=== PATIENT | female | born 1990 | race Caucasian/White ===

== ENCOUNTER → 2016-12-28 | Outpatient (CLI) | payer BC | LOC: MW.CHOBGYN 16:41 | PROVIDERS: ATTEND Nurse Practitioner Women's Health | DX: Z34.90 Encounter for supervision of normal pregnancy, unspecified, unspecified trimester (principal) | CPT/HCPCS: 81001; 87480; 87510; 87660 ==

== ENCOUNTER 2017-01-08 16:09 | Inpatient (IN) | payer BC ==
[2017-01-08] MEDS ORDERED: Nalbuphine 10 MG/1 ML Vial IVPUSH PRN (17:07)
[2017-01-08] MEDS ORDERED: Water For Irrigation,Sterile 1,000 ML Container IRR PRN (17:07)
[2017-01-08] MEDS ORDERED: Lidocaine 1% 50 ML MDV INJECT PRN (17:07)
[2017-01-08] MEDS ORDERED: Carboprost Tromethamine 250 MCG/1 ML Amp IM PRN (17:07)
[2017-01-08] MEDS ORDERED: Sodium Chloride 0.9% 2.5 ML Syringe FLUSH PRN (17:07)
[2017-01-08] MEDS ORDERED: Sodium Chloride 0.9% 10 ML Syringe FLUSH PRN (17:07)
[2017-01-08] MEDS ORDERED: Butorphanol 1 MG/ML SDV IVPUSH PRN (17:07)
[2017-01-08] MEDS ORDERED: Misoprostol 200 MCG Tab PO PRN (17:07)
[2017-01-08] MEDS ORDERED: Methylergonovine 0.2 MG/1 ML Amp IM PRN (17:07)
[2017-01-08] MEDS ORDERED: Oxytocin/Lactated Ringers 30 UNIT/500 ML BAG IV SCH (17:15)
--- NOTE | 2017-01-08 18:11 | PCM.LDHP ---
L&D History of Present Illness - General Date of Service: 01/08/17 Admit Problem/Dx: Patient Status Order with Admit Dx/Problem 01/08/17 17:07 Patient Status [ADT] Routine Patient Status: Refer to Observation Admission Diagnosis/Problem: - planned Reason for Admit: Labor Nurse Unit Type: Labor and Delivery Admitting Physician: Chilo Zaragoza Attending Physician: Celeste Dominguez Special Instructions: Medicare 96 Hour Certification Statement: This Patient is Admitted for Inpatient Services and is Medically Appropriate and Meets Medical Necessity for Inpatient Admission. I Reasonably Expect the Patient Will Require Inpatient Services That Span a Period of Time Over 2 Midnights. My Rationale for Medically Necessary Inpatient Care Will Be Found in the Admission History & Physical and Progress Notes. I Reasonably Expect the Patient to be Discharged or Transferred Within 96 Hours After Admission to This [facility]. Admission Diagnosis/Problem Admission Diagnosis/Problem - planned 01/08/17 18:06 26 yo EDC 01/14/2017 39+1wk, SVE 680/-2, active labor. Source of Information: Patient History Limitations: Reports: No limitations - History of Present Illness Improves with: Reports: None Worsens with: Reports: None Associated Symptoms: Reports: N - Related Data Allergies/Adverse Reactions: Allergies Allergy/AdvReac Type Severity Reaction Status Date / Time No Known Allergies Allergy Verified 01/28/14 16:04 Social & Family History - Tobacco Use Used Tobacco, but Quit: No Month Tobacco Last Used: This week. Second Hand Smoke Exposure: No - Alcohol Use Days Per Week of Alcohol Use: 0 - Recreational Drug Use Recreational Drug Use: No H&P Review of Systems - Review of Systems: Review Of Systems: See Below General: Reports: no symptoms HEENT: Reports: no symptoms Pulmonary: Reports: No Symptoms Cardiovascular: Reports: no symptoms Gastrointestinal: Reports: No symptoms Genitourinary: Reports: no symptoms Musculoskeletal: Reports: no symptoms Skin: Reports: no symptoms Psychiatric: Reports: no symptoms Neurological: Reports: No Symptoms Hematologic/Lymphatic: Reports: no symptoms Immunologic: Reports: no symptoms L&D Exam - Exam Exam: See Below - Vital Signs Weight: 122.47 kg - Thomas Score Thomas Score Cervix Position: Midposition Thomas Score Consistency: Soft Thomas Score Effacement: >80% Thomas Score Dilation: > 5 cm Thomas Score Infant's Station: -2 Thomas Score Total: 10 - Exam General: alert, oriented, cooperative HEENT: Hearing intact Lungs: Normal respiratory effort Abdomen: soft (gravid) Rectal Exam: Deferred Back Exam: full range of motion Extremities: normal inspection Skin: warm, dry, intact Psychiatric: alert, normal affect, normal mood - Problem List (1) Supervision of normal IUP (intrauterine ) in multigravida SNOMED Code(s): 140472432, 018665606, 454047225 ICD Code: Z34.90 - ENCNTR FOR SUPRVSN OF NORMAL , UNSP, UNSP TRIMESTER Status: Acute Current Visit: Yes Qualifiers: Trimester: third trimester Qualified Code(s): Z34.93 - Encounter for supervision of normal , unspecified, third trimester Problem List Initiated/Reviewed/Updated: Yes Orders Last 24hrs: Active Orders 24 hr Category Date Time Status Patient Status [ADT] Routine ADT 01/08/17 17:07 Active Heart Tones [RC] INTERMITTENT Care 01/08/17 17:10 Active Non Stress Test [RC] PER UNIT ROUTINE Care 01/08/17 17:07 Active May Shower [RC] ASDIRECTED Care 01/08/17 17:07 Active Notify Provider [RC] PRN Care 01/08/17 17:07 Active Up ad Leslie [RC] ASDIRECTED Care 01/08/17 17:07 Active Vaginal Exam [RC] PRN Care 01/08/17 17:07 Active Vital Signs [RC] PER UNIT ROUTINE Care 01/08/17 17:07 Active Regular Diet [DIET] Diet 01/08/17 Dinner Active CBC WITH AUTO DIFF [HEME] Routine Lab 01/08/17 17:43 Received TYPE AND SCREEN [BBK] Routine Lab 01/08/17 17:43 Received Butorphanol [Stadol] Med 01/08/17 17:07 Active 1 mg IVPUSH Q1H PRN Carboprost Tromethamine [Hemabate DS] Med 01/08/17 17:07 Active 250 mcg IM ASDIRECTED PRN Lidocaine 1% [Xylocaine 1%] Med 01/08/17 17:07 Active 50 ml INJECT .ONCE PRN Methylergonovine [Methergine] Med 01/08/17 17:07 Active 0.2 mg IM ASDIRECTED PRN Misoprostol [Cytotec] Med 01/08/17 17:07 Active 200 mcg PO .ONCE PRN Nalbuphine [Nubain] Med 01/08/17 17:07 Active 10 mg IVPUSH Q1H PRN Sodium Chloride 0.9% [Saline Flush] Med 01/08/17 17:07 Active 10 ml FLUSH ASDIRECTED PRN Sodium Chloride 0.9% [Saline Flush] Med 01/08/17 17:07 Active 2.5 ml FLUSH ASDIRECTED PRN Water For Irrigation,Sterile [Sterile Water for Med 01/08/17 17:07 Active Irrigation] 1,000 ml IRR ASDIRECTED PRN Scalp Electrode [WOMSER] Per Unit Routine Oth 01/08/17 17:07 Ordered Peripheral IV Insertion Adult [OM.PC] Routine Oth 01/08/17 17:07 Ordered Resuscitation Status Routine Resus Stat 01/08/17 17:07 Ordered Medication Orders Butorphanol Tartrate (Stadol) 1 mg IVPUSH Q1H PRN PRN Reason: Pain Carboprost Tromethamine (Hemabate Ds) 250 mcg IM ASDIRECTED PRN PRN Reason: Post Hemorrhage Lidocaine HCl (Xylocaine 1%) 50 ml INJECT .ONCE PRN PRN Reason: Laceration repair Methylergonovine Maleate (Methergine) 0.2 mg IM ASDIRECTED PRN PRN Reason: Post Hemorrhage Misoprostol (Cytotec) 200 mcg PO .ONCE PRN PRN Reason: Post Hemorrhage Nalbuphine HCl (Nubain) 10 mg IVPUSH Q1H PRN PRN Reason: Pain (severe 7-10) Stop: 01/08/17 19:08 Sodium Chloride (Saline Flush) 10 ml FLUSH ASDIRECTED PRN PRN Reason: Keep Vein Open Sodium Chloride (Saline Flush) 2.5 ml FLUSH ASDIRECTED PRN PRN Reason: Keep Vein Open Sterile Water (Sterile Water For Irrigation) 1,000 ml IRR ASDIRECTED PRN PRN Reason: delivery Assessment/Plan Comment:: A: 26yo 39+1wks, B+, RI, GBS neg. Active labor P: Admit to L&D, AROM, anticipate
[2017-01-08] MEDS ORDERED: Oxytocin 10 Units/1 ML SDV ONE (19:39)
[2017-01-08] MEDS ORDERED: Witch Hazel Medicated Pads 40/Jar TOP PRN ×2 (20:34→20:38)
[2017-01-08] MEDS ORDERED: Bisacodyl 10 MG Supp RECTAL PRN ×2 (20:34→20:38)
[2017-01-08] MEDS ORDERED: oxyCODONE 5 MG Tab PO PRN ×2 (20:34→20:38)
[2017-01-08] MEDS ORDERED: Lanolin 100% Cream 7 GM Tube TOP PRN ×2 (20:34→20:38)
[2017-01-08] MEDS ORDERED: Acetaminophen 500 MG Tab PO PRN ×3 (20:34→20:38)
[2017-01-08] MEDS ORDERED: Docusate Sodium 100 MG Cap PO PRN ×2 (20:34→20:38)
[2017-01-08] MEDS ORDERED: Ibuprofen 400 MG Tab PO PRN ×2 (20:34→20:38)
[2017-01-08] MEDS ORDERED: Benzocaine/Menthol 20%-0.5% Spray 78 GM Cannister TOP PRN ×2 (20:34→20:38)
[2017-01-08] MEDS ORDERED: Ibuprofen 800 MG Tab PO PRN (20:34)
--- NOTE | 2017-01-08 20:44 | PCM.DEL ---
L & D Note - General Info Date of Service: 01/08/17 Mother's Due Date: 01/14/17 - Delivery Note Labor: spontaneous Delivery Outcome: Livebirth Infant Delivery Method: Spontaneous Vaginal Delivery Infant Delivery Mode: Spontaneous Presentation: Vertex Nuchal cord: present Anesthesia Type: None Amniotic Fluid Description: Clear Episiotomy Type: None Laceration: none Placenta: intact, spontaneous Cord: 3 vessels Estimated blood loss: 100 Resuscitation needed: No : stimulated Score 1 min: 8 Score 5 min: 9 Second Stage Interventions: Reports: Pushing Effectively, Other (see below) ( hands and knees) Delivery Comments (Free Text/Narrative):: of viable male (Jean) over intact perineum. Pt pushed on hands and knees pushing well, head delivered, nuchel x1 loose noted, shoulders and body delivery. Spont cry. Infant to mothers abd. Delayed cord clamping, CC x2 and cut by FOB. Cord blood collected. No pitocin per pt request (unless needed and it was not) Placenta delivered grossly intact. 3VC. EBL 100cc, APGARS 8/9, Wt: 9lb 13oz. , mother and father left in stable condition for recovery. - General Info Date of Service: 01/08/17 Functional Status: Reports: pain controlled, tolerating diet - Review of Systems General: Reports: No Symptoms HEENT: Reports: no symptoms Pulmonary: Reports: no symptoms Cardiovascular: Reports: No Symptoms Gastrointestinal: Reports: No symptoms Genitourinary: Reports: no symptoms Musculoskeletal: Reports: no symptoms Skin: Reports: no symptoms Neurological: Reports: No Symptoms Psychiatric: Reports: no symptoms - Patient Data Weight - most recent: 122.47 kg Lab Results last 24 hrs: Laboratory Results - last 24 hr 01/08/17 01/08/17 Range/Units 17:43 17:43 WBC 10.51 (4.0-11.0) K/uL RBC 4.46 (4.30-5.90) M/uL Hgb 11.4 L (12.0-16.0) g/dL Hct 34.7 L (36.0-46.0) % MCV 77.8 L (80.0-98.0) fL MCH 25.6 L (27.0-32.0) pg MCHC 32.9 (31.0-37.0) g/dL RDW Std Deviation 40.7 (28.0-62.0) fl RDW Coeff of Kelley 14 (11.0-15.0) % Plt Count 176 (150-400) K/uL MPV 12.70 H (7.40-12.00) fL Add Manual Diff YES Neutrophils % (Manual) 72 (48.0-80.0) % Band Neutrophils % 9 % Lymphocytes % (Manual) 15 L (16.0-40.0) % Monocytes % (Manual) 4 (0.0-15.0) % Nucleated RBC % 0.0 /100WBC Absolute Seg Neuts 7.6 Band Neutrophils # 0.9 Lymphocytes # (Manual) 1.6 Monocytes # (Manual) 0.4 Nucleated RBCs # 0 K/uL Blood Type B POSITIVE Antibody Screen NEGATIVE Med Orders - Current: Current Medications Discontinued Medications Acetaminophen (Tylenol Extra Strength) 500 mg PO Q4H PRN PRN Reason: Pain Acetaminophen (Tylenol Extra Strength) 1,000 mg PO Q4H PRN PRN Reason: Pain Benzocaine/Menthol (Dermoplast Pain Relief 20%-0.5% [place]) 78 gm TOP ASDIRECTED PRN PRN Reason: Perineal Comfort Measure Bisacodyl (Dulcolax) 10 mg RECTAL .ONCE PRN PRN Reason: Constipation Butorphanol Tartrate (Stadol) 1 mg IVPUSH Q1H PRN PRN Reason: Pain Carboprost Tromethamine (Hemabate Ds) 250 mcg IM ASDIRECTED PRN PRN Reason: Post Hemorrhage Docusate Sodium (Colace) 100 mg PO BID PRN PRN Reason: Constipation Emollient Ointment (Lansinoh Hpa) 0 gm TOP ASDIRECTED PRN PRN Reason: Sore Nipples Oxytocin/Lactated Ringer's (Pitocin In Lr 30 Units/500 Ml) 30 unit in 500 mls @ 999 mls/hr IV TITRATE JULIAN Stop: 01/08/17 17:46 Ibuprofen (Motrin) 400 mg PO Q4H PRN PRN Reason: Pain Ibuprofen (Motrin) 800 mg PO Q6H PRN PRN Reason: Pain Lidocaine HCl (Xylocaine 1%) 50 ml INJECT .ONCE PRN PRN Reason: Laceration repair Methylergonovine Maleate (Methergine) 0.2 mg IM ASDIRECTED PRN PRN Reason: Post Hemorrhage Misoprostol (Cytotec) 200 mcg PO .ONCE PRN PRN Reason: Post Hemorrhage Nalbuphine HCl (Nubain) 10 mg IVPUSH Q1H PRN PRN Reason: Pain (severe 7-10) Stop: 01/08/17 19:08 Oxycodone HCl (Oxycodone) 5 mg PO Q2H PRN PRN Reason: Pain Oxytocin (Pitocin) Confirm Administered Dose 10 unit .ROUTE .STK-MED ONE Stop: 01/08/17 19:40 Sodium Chloride (Saline Flush) 10 ml FLUSH ASDIRECTED PRN PRN Reason: Keep Vein Open Sodium Chloride (Saline Flush) 2.5 ml FLUSH ASDIRECTED PRN PRN Reason: Keep Vein Open Sterile Water (Sterile Water For Irrigation) 1,000 ml IRR ASDIRECTED PRN PRN Reason: delivery Witch Barbara (Tucks) 1 pad TOP ASDIRECTED PRN PRN Reason: comfort care - Exam General: alert, oriented, cooperative, no acute distress Lungs: Normal respiratory effort Abdomen: soft, no tenderness, no distension (Female) Exam: Normal external exam, Vaginal bleeding Back Exam: full range of motion Extremities: no edema Skin: warm, dry, intact Neurological: no new focal deficit Psy/Mental Status: alert, normal affect, normal mood - Problem List & Annotations (1) Supervision of normal IUP (intrauterine ) in multigravida SNOMED Code(s): 200822943, 129449339, 219374344 Code(s): Z34.90 - ENCNTR FOR SUPRVSN OF NORMAL , UNSP, UNSP TRIMESTER Status: Acute Current Visit: Yes Qualifiers: Trimester: third trimester Qualified Code(s): Z34.93 - Encounter for supervision of normal , unspecified, third trimester (2) (spontaneous vaginal delivery) SNOMED Code(s): 94739421 Code(s): O80 - ENCOUNTER FOR FULL-TERM UNCOMPLICATED DELIVERY Status: Acute Current Visit: Yes - Problem List Review Problem List Initiated/Reviewed/Updated: Yes - My Orders Last 24 Hours: My Active Orders 01/08/17 17:07 Non Stress Test [RC] PER UNIT ROUTINE May Shower [RC] ASDIRECTED Notify Provider [RC] PRN Up ad Leslie [RC] ASDIRECTED Vaginal Exam [RC] PRN Vital Signs [RC] PER UNIT ROUTINE 01/08/17 17:10 Heart Tones [RC] INTERMITTENT 01/08/17 20:34 May Shower [RC] ASDIRECTED Up ad Leslie [RC] ASDIRECTED Vital Signs [RC] PER UNIT ROUTINE 01/08/17 20:36 Patient Status [ADT] Routine Resuscitation Status Routine 01/08/17 20:38 May Shower [RC] ASDIRECTED Up ad Leslie [RC] ASDIRECTED Vital Signs [RC] PER UNIT ROUTINE Acetaminophen [Tylenol Extra Strength] 1,000 mg PO Q4H PRN Acetaminophen [Tylenol Extra Strength] 500 mg PO Q4H PRN Benzocaine/Menthol [Dermoplast Pain Relief 20%-0.5% [place]] 78 gm TOP ASDIRECTED PRN Bisacodyl [Dulcolax] 10 mg RECTAL .ONCE PRN Docusate Sodium [Colace] 100 mg PO BID PRN Ibuprofen [Motrin] 400 mg PO Q4H PRN Ibuprofen [Motrin] 800 mg PO Q6H PRN Lanolin [Lansinoh HPA] See Dose Instructions TOP ASDIRECTED PRN Witch Barbara [Tucks] 1 pad TOP ASDIRECTED PRN oxyCODONE 5 mg PO Q2H PRN Assess Lochia [WOMSER] Per Unit Routine Assess Uterine Involution [WOMSER] Per Unit Routine Peripheral IV Discontinue [OM.PC] Routine 01/08/17 Breakfast Regular Diet [DIET] - Assessment Assessment:: of viable male, Intact perineum. EBL 100cc, APGARS 8/9, Wt: 9lb 13oz. - Plan Plan:: A: 26yo 39+1wks, B+, RI, GBS neg. Active labor P: Admit to L&D, AROM, anticipate Post P: routine pp care.
[2017-01-08] MEDS: Acetaminophen 500 MG Tab PO PRN (21:29)
[2017-01-09] MEDS: Ibuprofen 800 MG Tab PO PRN ×2 (04:11→17:22)
--- NOTE | 2017-01-09 08:02 | PCM.DCSUM1 ---
Discharge Summary - Hospital Course Free Text/Narrative:: Discharge home with . Follow up 6 weeks or sooner if needed - Discharge Data Discharge Date: 01/09/17 Discharge Disposition: Home, Self-Care 01 Condition: Good - Discharge Diagnosis/Problem(s) (1) Supervision of normal IUP (intrauterine ) in multigravida SNOMED Code(s): 137328018, 855410799, 602530032 ICD Code: Z34.90 - ENCNTR FOR SUPRVSN OF NORMAL , UNSP, UNSP TRIMESTER Status: Acute Priority: High Current Visit: Yes Qualifiers: Trimester: third trimester Qualified Code(s): Z34.93 - Encounter for supervision of normal , unspecified, third trimester (2) (spontaneous vaginal delivery) SNOMED Code(s): 82673555 ICD Code: O80 - ENCOUNTER FOR FULL-TERM UNCOMPLICATED DELIVERY Status: Acute Priority: Medium Current Visit: Yes - Patient Instructions Diet: Usual Diet as Tolerated Activity: As Tolerated, Rest and Relax Today Driving: May Drive Today Showering/Bathing: May Shower Notify Provider of: Fever, Increased Pain, Swelling and Redness, Nausea and/or Vomiting - Discharge Plan - General Info Date of Service: 01/09/17 Functional Status: Reports: pain controlled, tolerating diet, ambulating, urinating - Review of Systems General: Reports: No Symptoms HEENT: Reports: no symptoms Pulmonary: Reports: no symptoms Cardiovascular: Reports: No Symptoms Gastrointestinal: Reports: No symptoms Genitourinary: Reports: no symptoms Musculoskeletal: Reports: no symptoms Skin: Reports: no symptoms Neurological: Reports: No Symptoms Psychiatric: Reports: no symptoms - Patient Data Vitals - Most Recent: Last Vital Signs Temp 36.9 C 01/09/17 04:00 Pulse 99 01/09/17 04:00 Resp 20 01/09/17 04:00 BP 134/87 01/09/17 04:00 Pulse Ox 97 01/09/17 04:00 Weight - Most Recent: 122.47 kg Lab Results - Last 24 hrs: Laboratory Results - last 24 hr 01/08/17 01/08/17 Range/Units 17:43 17:43 WBC 10.51 (4.0-11.0) K/uL RBC 4.46 (4.30-5.90) M/uL Hgb 11.4 L (12.0-16.0) g/dL Hct 34.7 L (36.0-46.0) % MCV 77.8 L (80.0-98.0) fL MCH 25.6 L (27.0-32.0) pg MCHC 32.9 (31.0-37.0) g/dL RDW Std Deviation 40.7 (28.0-62.0) fl RDW Coeff of Kelley 14 (11.0-15.0) % Plt Count 176 (150-400) K/uL MPV 12.70 H (7.40-12.00) fL Add Manual Diff YES Neutrophils % (Manual) 72 (48.0-80.0) % Band Neutrophils % 9 % Lymphocytes % (Manual) 15 L (16.0-40.0) % Monocytes % (Manual) 4 (0.0-15.0) % Nucleated RBC % 0.0 /100WBC Absolute Seg Neuts 7.6 Band Neutrophils # 0.9 Lymphocytes # (Manual) 1.6 Monocytes # (Manual) 0.4 Nucleated RBCs # 0 K/uL Blood Type B POSITIVE Antibody Screen NEGATIVE Med Orders - Current: Current Medications Acetaminophen (Tylenol Extra Strength) 500 mg PO Q4H PRN PRN Reason: Pain Acetaminophen (Tylenol Extra Strength) 1,000 mg PO Q4H PRN PRN Reason: Pain Last Admin: 01/08/17 21:29 Dose: 1,000 mg Benzocaine/Menthol (Dermoplast Pain Relief 20%-0.5% [place]) 78 gm TOP ASDIRECTED PRN PRN Reason: Perineal Comfort Measure Last Admin: 01/08/17 21:28 Dose: 1 can Bisacodyl (Dulcolax) 10 mg RECTAL .ONCE PRN PRN Reason: Constipation Docusate Sodium (Colace) 100 mg PO BID PRN PRN Reason: Constipation Emollient Ointment (Lansinoh Hpa) 0 gm TOP ASDIRECTED PRN PRN Reason: Sore Nipples Last Admin: 01/08/17 21:28 Dose: 1 tube Ibuprofen (Motrin) 400 mg PO Q4H PRN PRN Reason: Pain Ibuprofen (Motrin) 800 mg PO Q6H PRN PRN Reason: Pain Last Admin: 01/09/17 04:11 Dose: 800 mg Oxycodone HCl (Oxycodone) 5 mg PO Q2H PRN PRN Reason: Pain Witch Barbara (Tucks) 1 pad TOP ASDIRECTED PRN PRN Reason: comfort care Last Admin: 01/08/17 21:27 Dose: 1 tub Discontinued Medications Acetaminophen (Tylenol Extra Strength) 500 mg PO Q4H PRN PRN Reason: Pain Acetaminophen (Tylenol Extra Strength) 1,000 mg PO Q4H PRN PRN Reason: Pain Benzocaine/Menthol (Dermoplast Pain Relief 20%-0.5% [place]) 78 gm TOP ASDIRECTED PRN PRN Reason: Perineal Comfort Measure Bisacodyl (Dulcolax) 10 mg RECTAL .ONCE PRN PRN Reason: Constipation Butorphanol Tartrate (Stadol) 1 mg IVPUSH Q1H PRN PRN Reason: Pain Carboprost Tromethamine (Hemabate Ds) 250 mcg IM ASDIRECTED PRN PRN Reason: Post Hemorrhage Docusate Sodium (Colace) 100 mg PO BID PRN PRN Reason: Constipation Emollient Ointment (Lansinoh Hpa) 0 gm TOP ASDIRECTED PRN PRN Reason: Sore Nipples Oxytocin/Lactated Ringer's (Pitocin In Lr 30 Units/500 Ml) 30 unit in 500 mls @ 999 mls/hr IV TITRATE JULIAN Stop: 01/08/17 17:46 Last Admin: 01/08/17 21:13 Dose: 999 mls/hr Ibuprofen (Motrin) 400 mg PO Q4H PRN PRN Reason: Pain Ibuprofen (Motrin) 800 mg PO Q6H PRN PRN Reason: Pain Lidocaine HCl (Xylocaine 1%) 50 ml INJECT .ONCE PRN PRN Reason: Laceration repair Methylergonovine Maleate (Methergine) 0.2 mg IM ASDIRECTED PRN PRN Reason: Post Hemorrhage Misoprostol (Cytotec) 200 mcg PO .ONCE PRN PRN Reason: Post Hemorrhage Nalbuphine HCl (Nubain) 10 mg IVPUSH Q1H PRN PRN Reason: Pain (severe 7-10) Stop: 01/08/17 19:08 Oxycodone HCl (Oxycodone) 5 mg PO Q2H PRN PRN Reason: Pain Oxytocin (Pitocin) Confirm Administered Dose 10 unit .ROUTE .[employer] ONE Stop: 01/08/17 19:40 Last Admin: 01/08/17 22:16 Dose: Not Given Sodium Chloride (Saline Flush) 10 ml FLUSH ASDIRECTED PRN PRN Reason: Keep Vein Open Sodium Chloride (Saline Flush) 2.5 ml FLUSH ASDIRECTED PRN PRN Reason: Keep Vein Open Sterile Water (Sterile Water For Irrigation) 1,000 ml IRR ASDIRECTED PRN PRN Reason: delivery Mitchel Jimenez (Tucks) 1 pad TOP ASDIRECTED PRN PRN Reason: comfort care - Exam General: Reports: alert, oriented, cooperative, no acute distress Lungs: Reports: Normal respiratory effort Abdomen: Reports: soft, no tenderness, no distension (Female) Exam: Vaginal bleeding (lochia scant) Rectal (Female) Exam: Deferred Back Exam: Reports: full range of motion Extremities: Reports: no edema Skin: Reports: warm, dry, intact Neurological: Reports: no new focal deficit Psy/Mental Status: Reports: alert, normal affect, normal mood *Q Meaningful Use (DIS) - VTE *Q VTE Criteria *Q: - Stroke *Q Stroke Criteria *Q: - AMI *Q AMI Criteria *Q:
[2017-01-09] MEDS: Acetaminophen 500 MG Tab PO PRN (13:17)
[2017-01-09 21:49] VITALS: BP 134/75
== END 2017-01-09 22:45 | disposition home or self-care (01) | DRG 560 ==
LOC: MW.OBCHECK 16:09 → MW.OB 16:10 → MW.OBCHECK 17:06 → MW.OB 17:07 → OBSVTOIN 20:10
PROVIDERS: ADMIT Obstetrics & Gynecology; ATTEND Advanced Practice Midwife
PROC: 10E0XZZ Delivery of Products of Conception, External Approach (ICD-10-PCS; principal; 2017-01-08)
PROC: 10907ZC Drainage of Amniotic Fluid, Therapeutic from Products of Conception, Via Natural or Artificial Opening (ICD-10-PCS; 2017-01-08)
DX: O80 Encounter for full-term uncomplicated delivery (principal); Z3A.39 39 weeks gestation of pregnancy; Z37.0 Single live birth
CPT/HCPCS: 59025; 85025; 86850; 86900; 86901; A9270-GY